=== PATIENT | male | born 1955 | race Caucasian/White ===

== ENCOUNTER 2021-11-22 10:41 | Inpatient (IN) | payer BC ==
[~2021-11-22] VITALS: Ht 177.8 cm; Wt 86.4 kg
[2021-11-22] MEDS ORDERED: vancomycin/NS 1 GM ADD-VANTAGE 250 ML IV ONE (11:10)
[2021-11-22] MEDS ORDERED: normal saline 1000ML IV soln IV ONE (11:10)
[2021-11-22] MEDS ORDERED: clindamycin-Cleocin 900mg/D5W 50 ML IV ONE (11:10)
[2021-11-22 11:33] LABS: BASOPHILS % (AUTO) 0.4 % (0-1); EOSINOPHILS # (AUTO) 0.1 X10'3 (0-0.9); HEMATOCRIT 44.6 % (42.0-52.0); HEMOGLOBIN 15.4 g/dl (14.0-17.9); LYMPHOCYTES # (AUTO) 2.2 X10'3 (1.1-4.8); LYMPHOCYTES % (AUTO) 24.4 % (21-51); MEAN CORPUSCULAR HEMOGLOBIN 31.2 PG (27.0-31.0); MEAN CORPUSCULAR HGB CONC 34.4 g/dL (33.0-36.5); MEAN CORPUSCULAR VOLUME 90.7 FL (78-98); MEAN PLATELET VOLUME 8.8 FL (7.4-10.4); MONOCYTES # (AUTO) 0.8 X10'3 (0-0.9); MONOCYTES % (AUTO) 9.5 % (2-12); NEUTROPHILS # (AUTO) 5.8 X10'3 (1.8-7.7); NEUTROPHILS % (AUTO) 64.7 % (42-75); PLATELET COUNT 189 X10'3 (140-440); RED BLOOD COUNT 4.92 X10'6 (4.70-6.10); RED CELL DISTRIBUTION WIDTH 13.3 % (11.5-14.5)
[2021-11-22 11:45] LABS: ALANINE AMINOTRANSFERASE 31 U/L (12-78); ALBUMIN 4.3 G/DL (3.4-5.0); ALKALINE PHOSPHATASE 62 IU/L (46-116); ANION GAP 10 (8-16); ASPARTATE AMINO TRANSFERASE 25 U/L (10-37); BILIRUBIN,TOTAL 0.7 MG/DL (0.1-1.0); BLOOD UREA NITROGEN 17 MG/DL (7-18); BUN/CREATININE RATIO 19.8 (5.4-32.0); CHLORIDE 104 MMOL/L (99-107); CREATININE 0.86 MG/DL (0.60-1.10); GLUCOSE 99 MG/DL (70-104); SODIUM 140 MMOL/L (135-145); TOTAL PROTEIN 8.6 G/DL (6.4-8.2); eGFR 90 ML/MIN
[2021-11-22] MEDS ORDERED: NO HOME MEDS ×2 (11:58→12:19)
[2021-11-22] MEDS ORDERED: acetaminophen 325mg tablet PO PRN ×2 (12:15)
[2021-11-22] MEDS ORDERED: magnesium hydroxide 30ml (MOM) UD suspension PO PRN (12:15)
[2021-11-22] MEDS ORDERED: ciprofloxacin lact 400MG/200ML 200 ML IV SCH (12:15)
[2021-11-22] MEDS ORDERED: mag hydrox/Alum hydrox/simeth 30ml oral suspension PO PRN (12:15)
[2021-11-22] MEDS ORDERED: morphine 2 MG/ML inj. syringe IV PRN ×2 (12:15)
[2021-11-22] MEDS ORDERED: ondansetron/PF 4mg/2ml inj IV PRN (12:15)
[2021-11-22] MEDS ORDERED: ibuprofen 200mg tablet PO PRN (12:30)
--- NOTE | 2021-11-22 14:48 | NUR ---
I have received report from ANGELES Aguiar and had the opportunity to ask questions and assume patient care.
[2021-11-22 15:10] VITALS: BP 113/72
--- NOTE | 2021-11-22 16:15 | NUR ---
Dr Padron notified regarding ciprofloxacin 400mg/200ml not being administered at 1215 as ordered in ED. Orders received to administer now and continue Q12H. Pharmacist Luis notified.
[2021-11-22] MEDS: ciprofloxacin lact 400MG/200ML 200 ML IV SCH (16:24)
[2021-11-22 18:00] VITALS: BP 131/56
--- NOTE | 2021-11-22 18:08 | NUR ---
Problems reprioritized. Patient report given, questions answered & plan of care reviewed with ANGELES Jiang.
[2021-11-22] MEDS: docusate sod 100mg capsule PO SCH (19:51)
[2021-11-23] VITALS: BP 127/65
--- NOTE | 2021-11-23 03:39 | NUR ---
0200 ABLE TO CHECK ORDERS AT THIS TIME. ORDER TO REMOVE WEDDING BAND NOTED. PT INFORMED AND AGREED TO REMOVAL NSG FRAME MAKER IMAN ON UNIT AND INFORMED. CHARGE NURSE CEASAR KEN. CONTACTED ED . ESTELLE FROM ED REMOVED WEDDING BAND PT HAS MOVEMENT , SENSATION , BRISK CAP REFILL AND WARMTH TO LEFT HAND . LEFT HAND IS SWOLLEN AND ELEVATED ON TWO PILLOWS
[2021-11-23] MEDS: ciprofloxacin lact 400MG/200ML 200 ML IV SCH (03:54)
[2021-11-23 06:03] LABS: BASOPHILS % (AUTO) 0.5 % (0-1); EOSINOPHILS # (AUTO) 0.2 X10'3 (0-0.9); EOSINOPHILS % (AUTO) 2.1 % (0-6); HEMATOCRIT 40.1 % (42.0-52.0); HEMOGLOBIN 13.8 g/dl (14.0-17.9); LYMPHOCYTES # (AUTO) 2.3 X10'3 (1.1-4.8); LYMPHOCYTES % (AUTO) 30.6 % (21-51); MEAN CORPUSCULAR HEMOGLOBIN 31.1 PG (27.0-31.0); MEAN CORPUSCULAR HGB CONC 34.3 g/dL (33.0-36.5); MEAN CORPUSCULAR VOLUME 90.5 FL (78-98); MEAN PLATELET VOLUME 9.1 FL (7.4-10.4); MONOCYTES # (AUTO) 0.9 X10'3 (0-0.9); MONOCYTES % (AUTO) 11.4 % (2-12); NEUTROPHILS # (AUTO) 4.2 X10'3 (1.8-7.7); NEUTROPHILS % (AUTO) 55.4 % (42-75); PLATELET COUNT 182 X10'3 (140-440); RED BLOOD COUNT 4.43 X10'6 (4.70-6.10); RED CELL DISTRIBUTION WIDTH 12.9 % (11.5-14.5); WHITE BLOOD COUNT 7.5 X10'3 (4.5-11.0)
[2021-11-23 06:15] LABS: ALBUMIN 3.3 G/DL (3.4-5.0); ANION GAP 7 (8-16); BLOOD UREA NITROGEN 15 MG/DL (7-18); BUN/CREATININE RATIO 16.1 (5.4-32.0); CALCIUM 8.7 MG/DL (8.5-10.1); CHLORIDE 106 MMOL/L (99-107); CREATININE 0.93 MG/DL (0.60-1.10); GLUCOSE 100 MG/DL (70-104); POTASSIUM 3.9 MMOL/L (3.5-5.1); SODIUM 138 MMOL/L (135-145); TOTAL CARBON DIOXIDE 24.9 MMOL/L (24-32); eGFR 82 ML/MIN
[2021-11-23] MEDS: docusate sod 100mg capsule PO SCH (07:16)
[2021-11-23 07:36] VITALS: BP 115/62
[2021-11-23 11:00] VITALS: BP 112/57
[2021-11-23] MEDS ORDERED: CIPR-202 PO (11:35)
--- NOTE | 2021-11-23 12:25 | NUR ---
Patient discharged home with . Patient states understanding of discharge medication and will come back to ER if symptoms worsen. Pt appropriate for discharge at this time. IV taken out, all belongings taken from room. No current concerns at this time
== END 2021-11-23 12:25 | disposition home or self-care (01) | DRG 603 ==
LOC: ER 10:42 → ED HOLD 12:20 → EDBEDREQ 13:45 → SUR 3N 15:01
PROVIDERS: ADMIT Internal Medicine; ATTEND Internal Medicine
DX: L03.114 Cellulitis of left upper limb (principal); S61.452A Open bite of left hand, initial encounter; S61.432A Puncture wound without foreign body of left hand, initial encounter; L08.9 Local infection of the skin and subcutaneous tissue, unspecified; W55.01XA Bitten by cat, initial encounter; Y93.89 Activity, other specified; Y99.8 Other external cause status; Z80.3 Family history of malignant neoplasm of breast; Z82.49 Family history of ischemic heart disease and other diseases of the circulatory system; Z83.3 Family history of diabetes mellitus; Z88.0 Allergy status to penicillin; Z88.2 Allergy status to sulfonamides; Z88.8 Allergy status to other drugs, medicaments and biological substances; Y92.098 Other place in other non-institutional residence as the place of occurrence of the external cause
CPT/HCPCS: 36415; 71045; 73130; 80048; 80053; 83605; 83735; 84145; 85025; 87040; 87081; 93005; 99285; G0378; J0744; J3370; J3490; J7030